=== PATIENT | male | born 1960 | race Caucasian/White ===

== ENCOUNTER 2017-10-02 09:12 | Emergency (ER) | payer OTHER ==
[~2017-10-02] VITALS: Ht 177.8 cm; Wt 150.0 kg
[~2017-10-02 09:12] MED LIST: ASPI81 PO; CIPR500T4 PO; ENAL5TAB98 PO; METR-1 PO; MEVA40TA6 PO; NEXI40CA PO; PAXI20TA26 PO; TYLE3 PO; XANA0.5T PO
[2017-10-02 09:18] VITALS: BP 123/71; PULSE 103; RESP 22; TEMP 99.5; O2SAT 95
[2017-10-02] MEDS ORDERED: ASPI-516 CHEW (09:29)
[2017-10-02] MEDS ORDERED: HTN MEDS (09:29)
[2017-10-02] MEDS ORDERED: CHOLESTEROL MED (09:29)
[2017-10-02] MEDS ORDERED: CLIN300C5 PO (10:11)
[2017-10-02] MEDS ORDERED: LIDOCAINE HCL 1% PF 30 ML VIAL INFIL ONE (10:15)
--- NOTE | 2017-10-02 10:15 | PD ---
HPI Chief Complaint: Skin Problem Time Seen by Provider: 10:02 Travel History International Travel<30 days: No Contact w/Intl Traveler<30days: No Traveled to known affect area: No History of Present Illness HPI 57-year-old male presents to the ED for evaluation of 2 day history of red, hardened, tender area of the right inner thigh. Pain is rated 9/10, exacerbated by certain motions. No alleviating factors reported. Gradual onset. Patient can identify no injury. He denies fever, chills, nausea, vomiting. Denies history of MRSA. He treated at home with warm compresses with no improvement of symptoms. PFSH Past Medical History Anxiety: Yes Cardiovascular Problems: Yes (VALVE REGURGITATION) High Cholesterol: Yes Diminished Hearing: No GERD: Yes Hypertension: Yes ?: Not Past Surgical History Abdominal Surgery: Yes (HERNIA REPAIR AN ) Other Surgery: Yes (BACK 1997) Social History Alcohol Use: Yes (6 PACK DAILY) Tobacco Use: Yes Substance Use: No Allergies-Medications (Allergen,Severity, Reaction): Coded Allergies: penicillin G (Unverified Allergy, Severe, UNKNOWN, 10/02/17) Reported Meds & Prescriptions Reported Meds & Active Scripts Active Clindamycin (Clindamycin HCl) 300 Mg Cap 300 Mg PO TID 7 Days Reported [Cholesterol Med] [Htn Meds] Aspirin 81 Mg Chew 81 Mg CHEW DAILY Review of Systems Except as stated in HPI: all other systems reviewed are Neg Physical Exam Narrative GENERAL: Well-nourished, well-developed white male in no acute distress. SKIN: Focused skin assessment warm/dry. Chronic skin changes in bilateral inner thighs. SKIN: There is an indurated area in the right inner thigh which measures about 5 cm in diameter. It is fluctuant but there is no pointing or drainage. There is a zone of inflammation around it but no lymphangitis. HEAD: Normocephalic. EYES: No scleral icterus. No injection or drainage. NECK: Supple, trachea midline. No JVD or lymphadenopathy. CARDIOVASCULAR: Regular rate and rhythm without murmurs, gallops, or rubs. RESPIRATORY: Breath sounds equal bilaterally. No accessory muscle use. GASTROINTESTINAL: Abdomen soft, non-tender, nondistended. MUSCULOSKELETAL: No cyanosis, or edema. BACK: Nontender without obvious deformity. No CVA tenderness. Data Data Last Documented VS Vital Signs Date Time Temp Pulse Resp B/P (MAP) Pulse Ox O2 Delivery O2 Flow Rate FiO2 10/02/17 09:18 99.5 103 22 123/71 (88) 95 Orders Orders Lidocaine Pf 1% Inj (Xylocaine-Mpf 1% In (10/02/17 10:15) Abscess Culture And Gram Stain (10/02/17 10:08) Ed Discharge Order (10/02/17 10:48) Ibuprofen (Motrin) (10/02/17 11:00) MDM Medical Decision Making Medical Screen Exam Complete: Yes Emergency Medical Condition: Yes Differential Diagnosis Folliculitis versus cellulitis versus abscess versus other Narrative Course 57-year-old male presents to the ED for evaluation of 2 day history of red, hardened, tender area of the right inner thigh. No history of MRSA. Vitals reviewed. Physical exam consistent with abscess. Abscess I&D was performed. Patient's prescribed clindamycin 450 3 times daily 7 days. He is instructed to begin the antibiotics today, keep the wound clean and dry, return to the ED in 2 days for packing removal and wound recheck. He indicated understanding of the instructions and is agreeable to the care plan. He stable and discharged home. Procedures Procedure Narrative INCISION AND DRAINAGE OF ABSCESS: The area was prepped and was sterilely draped. A subcutaneous wheal of 1 % Xylocaine with a total number 4 mL was used to anesthetize the area properly. A number 11 scalpel was used to make a 1 -cm incision across the area of the abscess. The abscess was drained, complex loculations were broken down, and irrigated with normal saline. Cultures were obtained. Quarter inch iodoform packing was placed in the wound. Sterile dressing applied. Patient advised to have packing removed in two days. Diagnosis Primary Impression: Abscess of right thigh Referrals: Primary Care Physician Additional Instructions: Rest, hydrate. Keep the wound clean, dry and covered. Take the antibiotics as they are prescribed, even if your symptoms resolved. Utilize [id number] pain medications, as described on the label, as needed. Return to the ED in 48 hours for packing removal and wound recheck. Med/Other Pt SpecificInfo: Prescription(s) given Scripts Clindamycin (Clindamycin) 300 Mg Cap 300 MG PO TID for Infection for 7 Days, CAP 0 Refills Prov: Juan A Schaeffer MD 10/02/17 Disposition: 01 DISCHARGE HOME Condition: Stable Kim Escobedo Oct 02, 2017 10:15
[2017-10-02] MEDS ORDERED: IBUPROFEN 800 MG TAB PO ONE (11:00)
== END 2017-10-02 11:15 | disposition home or self-care (01) ==
LOC: PHEFT 09:12
DX: L02.415 Cutaneous abscess of right lower limb (principal); F41.9 Anxiety disorder, unspecified; E78.00 Pure hypercholesterolemia, unspecified; K21.9 Gastro-esophageal reflux disease without esophagitis; I10 Essential (primary) hypertension; Z72.0 Tobacco use; Z88.0 Allergy status to penicillin
CPT/HCPCS: 10061; 86403; 87070; 87205

== ENCOUNTER 2017-10-04 06:03 | Emergency (ER) | payer OTHER ==
[~2017-10-04] VITALS: Ht 177.8 cm; Wt 150.0 kg
[~2017-10-04 06:03] MED LIST changes: +ASPI-516 CHEW; -ASPI81 PO; +CHOLESTEROL MED; -CIPR500T4 PO; +CLIN300C5 PO; -ENAL5TAB98 PO; +HTN MEDS; -METR-1 PO; -MEVA40TA6 PO; -NEXI40CA PO; -PAXI20TA26 PO; -TYLE3 PO; -XANA0.5T PO
[2017-10-04 06:08] VITALS: BP 133/79; PULSE 88; RESP 18; TEMP 98.6; O2SAT 97
--- NOTE | 2017-10-04 06:25 | PD ---
HPI Chief Complaint: Packing removal Time Seen by Provider: 06:14 Travel History International Travel<30 days: No Contact w/Intl Traveler<30days: No Traveled to known affect area: No History of Present Illness HPI The patient is a 57-year-old male that had an abscess on his right medial thigh which was drained on October 02. A packing was put in and he comes in today to have the packing removed. It is doing well at home. [facility] Past Medical History Anxiety: Yes Cardiovascular Problems: Yes (VALVE REGURGITATION) High Cholesterol: Yes Diminished Hearing: No GERD: Yes Hypertension: Yes Past Surgical History Abdominal Surgery: Yes (HERNIA REPAIR AN ) Other Surgery: Yes (BACK 1997) Social History Alcohol Use: Yes (6 PACK DAILY) Tobacco Use: Yes Substance Use: No Allergies-Medications (Allergen,Severity, Reaction): Coded Allergies: penicillin G (Unverified Allergy, Severe, UNKNOWN, 10/02/17) Reported Meds & Prescriptions Reported Meds & Active Scripts Active Clindamycin (Clindamycin HCl) 300 Mg Cap 300 Mg PO TID 7 Days Reported [Cholesterol Med] [Htn Meds] Aspirin 81 Mg Chew 81 Mg CHEW DAILY Review of Systems Except as stated in HPI: all other systems reviewed are Neg Physical Exam Narrative GENERAL: Well-nourished, well-developed patient in minimal apparent distress with his right thigh abscess. His vital signs are normal. SKIN: Focused skin assessment warm/dry. There is almost no erythema around the abscess. The packing was removed. This was not painful and a slight amount of pus was present. HEAD: Normocephalic. EYES: No scleral icterus. No injection or drainage. NECK: Supple, trachea midline. No JVD or lymphadenopathy. CARDIOVASCULAR: Regular rate and rhythm without murmurs, gallops, or rubs. RESPIRATORY: Breath sounds equal bilaterally. No accessory muscle use. GASTROINTESTINAL: Abdomen soft, non-tender, nondistended. MUSCULOSKELETAL: No cyanosis, or edema. BACK: Nontender without obvious deformity. No CVA tenderness. Data Data Last Documented VS Vital Signs Date Time Temp Pulse Resp B/P (MAP) Pulse Ox O2 Delivery O2 Flow Rate FiO2 10/04/17 06:08 98.6 88 18 133/79 (97) 97 MDM Medical Decision Making Medical Screen Exam Complete: Yes Emergency Medical Condition: Yes Medical Record Reviewed: Yes Differential Diagnosis Resolving abscess, cellulitis with abscess, worsening abscess Narrative Course The patient appears to have a resolving abscess. He is hardly tender and there is minimal swelling around the abscess cavity. The packing was removed. Diagnosis Primary Impression: Abscess packing removal Additional Instructions: Sit in a tub of warm water today. Do this about 3 or 4 times a day. We will write you a work excuse. For the next week or so, after today, soak it once daily. If worse, please return to emergency department. Continue your antibiotic medications Med/Other Pt SpecificInfo: No Change to Meds Disposition: 01 DISCHARGE HOME Condition: Stable Neo Hawkins MD Oct 04, 2017 06:24
== END 2017-10-04 06:39 | disposition home or self-care (01) ==
LOC: PHED 06:03
DX: L02.415 Cutaneous abscess of right lower limb (principal); Z48.01 Encounter for change or removal of surgical wound dressing
CPT/HCPCS: 99281